=== PATIENT | female | born 1940 | race Caucasian/White ===

== ENCOUNTER 2018-06-02 01:56 | Emergency (ER) | payer MEDICARE, BC ==
--- NOTE | 2018-06-02 02:34 | Emergency Department Record ---
History of Present Illness - General Chief Complaint: Cough Stated Complaint: COUGH/SORE THROAT Time Seen by Provider: 06/02/18 02:05 Source: Patient Mode of Arrival: Ambulatory Limitations: No limitations - History of Present Illness Initial Comments: pt has a sore throat, yellow congestion, yellow rhinitis, r ear pain and body aches. MD Complaint: Cough, Fever, Nasal congestion, Rhinorrhea, Sore throat Onset/Timin -: Hour(s) Severity: Moderate Severity scale (1-10): 7 Consistency: Constant Improves With: Nothing Context: Sick contacts Associated Symptoms: Cough, Ear pain, Nasal congestion, Rhinorrhea, Sore throat - Related Data Home Medications Medication Instructions Recorded Confirmed Last Taken Levothyroxine Sodium [Synthroid] 75 mcg PO DAILY 06/02/18 06/02/18 06/01/18 Losartan/Hydrochlorothiazide 1 each PO DAILY 06/02/18 06/02/18 06/01/18 [Losartan-Hctz 50-12.5 mg Tab] Metformin HCl 500 mg PO BID 06/02/18 06/02/18 06/01/18 Metoprolol Succinate 100 mg PO DAILY 06/02/18 06/02/18 06/01/18 Pitavastatin Calcium [Livalo] 1 mg PO DAILY 06/02/18 06/02/18 06/01/18 Previous Rx's Medication Instructions Recorded Azithromycin [Zithromax] 250 mg PO DAILY #4 tab 06/02/18 Allergies Allergy/AdvReac Type Severity Reaction Status Date / Time Penicillins Allergy PT UNSURE Verified 06/02/18 02:19 OF REACTION Opioids - Morphine Analogues AdvReac VOMITING Verified 06/02/18 02:19 Travel Screening - Travel/Exposure Within Last 30 Days Have you traveled within the last 30 days?: No - Travel Symptoms Symptom Screening: None Review of Systems Reviewed: No additional complaints except as noted below Constitutional: Reports: As per HPI. Denies: Chills, Fever, Malaise, Night sweats, Weakness, Weight change Eyes: Reports: As per HPI. Denies: Eye discharge, Eye pain, Photophobia, Vision change ENT: Reports: As per HPI. Denies: Congestion, Dental pain, Ear pain, Epistaxis , Hearing loss, Throat pain Respiratory: Reports: As per HPI. Denies: Cough, Dyspnea, Hemoptysis, Stridor, Wheezes Cardiovascular: Reports: As per HPI. Denies: Arrhythmia, Chest pain, Dyspnea on exertion, Edema, Murmurs, Orthopnea, Palpitations, Paroxysmal nocturnal dyspnea, Rheumatic Fever, Syncope Endocrine: Reports: As per HPI. Denies: Fatigue, Heat or cold intolerance, Polydipsia, Polyuria Gastrointestinal: Reports: As per HPI. Denies: Abdominal pain, Constipation, Diarrhea, Hematemesis, Hematochezia, Melena, Nausea, Vomiting Genitourinary: Reports: As per HPI. Denies: Abnormal menses, Discharge, Dyspareunia, Dysuria, Frequency, Hematuria, Incontinence, Retention, Urgency Musculoskeletal: Reports: As per HPI. Denies: Arthralgia, Back pain, Gout, Joint swelling, Myalgia, Neck pain Skin: Reports: As per HPI. Denies: Bruising, Change in color, Change in hair/ nails, Lesions, Pruritus, Rash Neurological: Reports: As per HPI. Denies: Abnormal gait, Confusion, Headache, Numbness, Paresthesias, Seizure, Tingling, Tremors, Vertigo, Weakness Psychiatric: Reports: As per HPI. Denies: Anxiety, Auditory hallucinations, Depression, Homicidal thoughts, Suicidal thoughts, Visual hallucinations Hematological/Lymphatic: Reports: As per HPI. 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", Fallon's Palsy - GI Hx GI Disorders: No - Hx Genitourinary Disorders: Yes Hx Bladder Problem: Yes (stress incontinence) - ENDOCRINE Hx Endocrine Disorders: Yes Hx Diabetes: Yes - MUSCULOSKELETAL Hx Musculoskeletal Disorders: No - PSYCH Hx Psych Problems: No - HEMATOLOGY/ONCOLOGY Hx Hematology/Oncology Disorders: No Family Medical History Any Significant Family History?: Yes Hx Cancer: Brother/Sister Hx Dementia: Brother/Sister Hx Diabetes: Brother/Sister Hx Heart Disease: Father Physical Exam - General General Appearance: Alert, Oriented x3, Cooperative, Mild distress - Head Head exam: Normal inspection - Eye Eye exam: Normal appearance, PERRL, EOMI Pupils: Normal accommodation - ENT ENT exam: Normal exam, Mucous membranes moist, Normal external ear exam, Normal orophraynx, TM's normal bilaterally Ear exam: Normal external inspection. negative: External canal tenderness Nasal Exam: Normal inspection. negative: Discharge, Sinus tenderness Mouth exam: Normal external inspection, Tongue normal Teeth exam: Normal inspection. negative: Dental caries Throat exam: Tonsillar erythema. negative: Tonsillar exudate - Neck Neck exam: Normal inspection, Full ROM. negative: Tenderness - Respiratory Respiratory exam: Normal lung sounds bilaterally. negative: Respiratory distress - Cardiovascular Cardiovascular Exam: Regular rate, Normal rhythm, Normal heart sounds - GI/Abdominal GI/Abdominal exam: Soft, Normal bowel sounds. negative: Tenderness - Rectal Rectal exam: Deferred - exam: Deferred - Extremities Extremities exam: Normal inspection, Full ROM, Normal capillary refill. negative: Tenderness - Back Back exam: Reports: Normal inspection, Full ROM. Denies: Muscle spasm, Rash noted, Tenderness - Neurological Neurological exam: Alert, CN II-XII intact, Normal gait, Oriented X3 - Psychiatric Psychiatric exam: Normal affect, Normal mood - Skin Skin exam: Dry, Intact, Normal color, Warm Course Vital Signs 06/02/18 06/02/18 02:07 02:17 Temperature 98.1 F Pulse Rate [ 62 Pulse Ox Probe] Respiratory 24 Rate Blood Pressure 208/88 [Left Arm] Pulse Ox 96 Disposition Disposition: Discharge Clinical Impression: Bronchitis Disposition: Home, Self-Care Condition: (1) Good Instructions: Acute Bronchitis (ED) Additional Instructions: follow up with family doctor. return sooner if worse. tylenol as needed Prescriptions: Azithromycin [Zithromax] 250 mg PO DAILY #4 tab Forms: Patient Portal Access Quality - Quality Measures Quality Measures: Adult Bronchitis (18-64yr) - Blood Pressure Screening Does Patient Have Any of the Following: Active Dx of HTN Blood Pressure Classification: Pre-Hypertensive BP Reading Systolic Measurement: 208 Diastolic Measurement: 88 Screening for High Blood Pressure: Patient Exclusion, Hx of HTN [[id number]]
[2018-06-02 02:39] LABS: STREP A SCREEN NEGATIVE (NEGATIVE)
[2018-06-02 02:43] LABS: INFLUENZA A NEGATIVE (NEGATIVE); INFLUENZA B NEGATIVE (NEGATIVE)
[2018-06-02] MEDS: AZITHROMYCIN 500 MG TABLET PO ONE (02:52)
[2018-06-02] MEDS: METOPROLOL SUCC 50 MG TABLET PO ONE (03:18)
[2018-06-02] MEDS: CLONIDINE HCL 0.1 MG TABLET PO ONE (05:22)
--- NOTE | 2018-06-02 13:41 | RADIOLOGY REPORT ---
EXAM: CHEST, TWO VIEWS HISTORY: DIFFICULTY IN BREATHING. TECHNIQUE: Frontal and lateral views of the chest were performed. Comparison: 03/26/13. FINDINGS: The heart size is normal. The lung marshall are clear. No infiltrate or pleural effusion. The osseous structures are normal. IMPRESSION: NEGATIVE CHEST EXAMINATION. JOB NUMBER: [id number] MTDD
== END 2018-06-02 06:05 | disposition home or self-care (01) ==
LOC: ER 01:56
DX: J20.9 Acute bronchitis, unspecified (principal); R06.00 Dyspnea, unspecified; E11.9 Type 2 diabetes mellitus without complications; Z79.84 Long term (current) use of oral hypoglycemic drugs; I10 Essential (primary) hypertension
CPT/HCPCS: 71046; 87400; 87880; 99283

== ENCOUNTER 2019-05-10 03:22 | Emergency (ER) | payer MEDICARE, BC | END 2019-05-10 03:45 | disposition home or self-care (01) | LOC: ER 03:22 | DX: J20.9 Acute bronchitis, unspecified (principal); I10 Essential (primary) hypertension | CPT/HCPCS: 99283 ==